=== PATIENT | male | born 1960 | race African-American/Black ===

== ENCOUNTER 2017-08-31 07:13 | Emergency (ER) | payer SELFPAY ==
[~2017-08-31] VITALS: Ht 188 cm; Wt 77.1 kg
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
[2017-08-31 08:52] LABS: *BILIRUBIN,URIN NEGATIVE (NEGATIVE); *BLOOD, URINE NEGATIVE (NEGATIVE); *CLARITY,URINE CLEAR (CLEAR); *COLOR,URINE YELLOW (YELLOW); *KETONES,URINE NEGATIVE (NEGATIVE); *PROTEIN,URINE NEGATIVE (NEGATIVE); LEUKOCYTE ESTERASE ,URINE NEGATIVE (NEGATIVE); NITRITE, URINE NEGATIVE (NEGATIVE); UGLUCOSE NEGATIVE (NEGATIVE)
[2017-08-31 08:55] LABS: BACTERIA,URINE NONE SEEN /HPF (NONE SEEN); MUCUS,URINE FEW /LPF (0-FEW); RBC,URINE 0-3 /HPF (0-3); SQUAMOUS EPITHELIAL CELL,UR FEW /HPF (NONE SEEN)
[2017-08-31 09:31] VITALS: BP 113/71
== END 2017-08-31 09:35 | disposition home or self-care (01) ==
LOC: ER 07:18
DX: R33.9 Retention of urine, unspecified (principal); G89.29 Other chronic pain; Z76.0 Encounter for issue of repeat prescription
CPT/HCPCS: 81001; 99283; A4663